=== PATIENT | female | born 1970 | race African-American/Black ===

== ENCOUNTER 2019-01-08 00:58 | Emergency (ER) | payer SELFPAY ==
[~2019-01-08] VITALS: Ht 160 cm; Wt 90.2 kg
[2019-01-08 00:58] VITALS: BP 112/56
[2019-01-08] MEDS ORDERED: METH-37 PO (01:26)
--- NOTE | 2019-01-08 01:29 | PHYS DOC ---
Past History Past Medical History: Diabetes, Fibromyalgia, Hypertension Smoking: Cigar Alcohol Use: Occasionally Drug Use: Marijuana Adult General Chief Complaint Chief Complaint: MULTIPLE COMPLAINTS HPI HPI Patient is a 49-year-old female presents with muscle spasms diffusely that been going on intermittently since approximately 4:00 in the afternoon yesterday. An elevated blood pressure that went along with the discomfort. She noted an elevated blood sugar at home. Symptoms didn't improve with her home pain medication. Nothing seems to make the symptoms better or worse. She is currently out of medication for muscle spasm/muscle relaxers.[] Review of Systems Review of Systems Constitutional: Denies fever or chills [] Eyes: Denies change in visual acuity, redness, or eye pain [] HENT: Denies nasal congestion or sore throat [] Respiratory: Denies cough or shortness of breath [] Cardiovascular: No chest pain or palpitations] GI: Denies abdominal pain, nausea, vomiting, bloody stools or diarrhea [] : Denies dysuria or hematuria [] Musculoskeletal: See history of present illness[] Integument: Denies rash or skin lesions [] Neurologic: Denies headache, focal weakness or sensory changes [] Endocrine: Denies polyuria or polydipsia [] All other systems were reviewed and found to be within normal limits, except as documented in this note. Allergies Allergies Allergies Coded Allergies Type Severity Reaction Last Updated Verified No Known Drug Allergies 01/08/19 No Physical Exam Physical Exam Constitutional: Well developed, well nourished, no acute distress, non-toxic appearance. [] HENT: Normocephalic, atraumatic, bilateral external ears normal, oropharynx moist, no oral exudates, nose normal. [] Eyes: PERRLA, EOMI, conjunctiva normal, no discharge. [] Neck: Normal range of motion, no tenderness, supple, no stridor. [] Cardiovascular:Heart rate regular rhythm, no murmur [] Lungs & Thorax: Bilateral breath sounds clear to auscultation [] Abdomen: Bowel sounds normal, soft, no tenderness, no masses, no pulsatile masses. [] Skin: Warm, dry, no erythema, no rash. [] Back: No tenderness, no CVA tenderness. [] Extremities: No tenderness, no cyanosis, no clubbing, ROM intact, no edema. [] Neurologic: Alert and oriented X 3, normal motor function, normal sensory function, no focal deficits noted. [] Psychologic: Affect normal, judgement normal, mood normal. [] Current Patient Data Lab Results Laboratory Tests Test 01/08/19 01:10 Glucose (Fingerstick) 182 mg/dL (70-99) H EKG EKG [] Radiology/Procedures Radiology/Procedures [] Course & Med Decision Making Course & Med Decision Making Pertinent Labs and Imaging studies reviewed. (See chart for details) Lynne decision making: Patient with multiple complaints that may be related to her fibromyalgia. There is no evidence of hypertension at this time given her normal blood pressure. Her blood sugar while elevated is not high enough that evaluation for DKA needs to be pursued at this time. We will treat her muscle cramps with medication has worked for her in the past. Will have patient follow up with her primary care team or establish with a local primary care ryne huerta.[] Dragon Disclaimer Dragon Disclaimer This electronic medical record was generated, in whole or in part, using a voice recognition dictation system. Departure Departure: Impression: Primary Impression: Muscle spasm Disposition: HOME, SELF-CARE Condition: IMPROVED Patient Instructions: DASH Diet, Fibromyalgia, Muscle Cramps, Smoking Cessation Additional Instructions: Follow-up with your regular doctor in 2 days. If you do not have a regular doctor list of local clinics will be provided for you. Take your medication as prescribed. Return to the ER if worsening discomfort or any other concerns. Scripts Methocarbamol (ROBAXIN) 500 Mg Tablet 1 TAB PO TID for muscle cramps, #40 TAB Prov: MIKE ALEXANDRE DO 01/08/19 MIKE ALEXANDRE DO January 08, 2019 01:29
[2019-01-08] MEDS: METHOCARBAMOL 500 MG TABLET PO ONE (01:43)
== END 2019-01-08 01:45 | disposition home or self-care (01) ==
LOC: ER 00:58
DX: M62.838 Other muscle spasm (principal); I10 Essential (primary) hypertension; E11.65 Type 2 diabetes mellitus with hyperglycemia; M79.7 Fibromyalgia; F17.210 Nicotine dependence, cigarettes, uncomplicated
CPT/HCPCS: 82947; 99283